=== PATIENT | female | born 1965 | race Caucasian/White ===

== ENCOUNTER 2018-01-01 20:51 | Emergency (ER) | payer OTHER ==
[~2018-01-01] VITALS: Ht 165.1 cm; Wt 81.6 kg
[2018-01-01] MEDS ORDERED: SIMVASTATIN20 MG PO (21:06)
[2018-01-01] MEDS ORDERED: TOUJEO SOL300 UNIT/1 (21:06)
[2018-01-01] MEDS ORDERED: JANUVIA25 MG PO (21:06)
[2018-01-02] MEDS ORDERED: INTESTINEX680 M1 PO (05:48)
[2018-01-02] MEDS ORDERED: PEPCID AC20 MG PO (05:48)
== END 2018-01-02 06:26 | disposition home or self-care (01) ==
LOC: ER 20:51
DX: K29.70 Gastritis, unspecified, without bleeding (principal)

== ENCOUNTER 2018-03-04 22:52 | Emergency (ER) | payer OTHER ==
[~2018-03-04] VITALS: Ht 165.1 cm; Wt 81.6 kg
[~2018-03-04 22:52] MED LIST: INTESTINEX680 M1 PO; JANUVIA25 MG PO; PEPCID AC20 MG PO; SIMVASTATIN20 MG PO; TOUJEO SOL300 UNIT/1
[2018-03-05] MEDS ORDERED: LEVSIN/SL0.125 MG PO (04:21)
[2018-03-05] MEDS ORDERED: PEPCID AC20 MG PO (04:21)
== END 2018-03-05 04:51 | disposition home or self-care (01) ==
LOC: ER 22:52
DX: K29.70 Gastritis, unspecified, without bleeding (principal)

== ENCOUNTER 2018-04-21 08:55 | Inpatient (IN) | payer OTHER ==
[~2018-04-21] VITALS: Ht 167.6 cm; Wt 78.5 kg
[~2018-04-21 08:55] MED LIST changes: +LEVSIN/SL0.125 MG PO
[2018-04-29] MEDS ORDERED: GAS RELIEF125 MG PO (12:03)
[2018-04-29] MEDS ORDERED: ZOFRAN4 MG PO (12:04)
[2018-04-29] MEDS ORDERED: PROTONIX40 MG PO (12:05)
[2018-04-29] MEDS ORDERED: REGLAN5 MG/5 ML PO (12:06)
[2018-04-29] MEDS ORDERED: TOUJEO SOL300 UNIT/1 SUBCUTANEO (12:38)
== END 2018-04-29 13:39 | disposition home or self-care (01) | DRG 357 ==
LOC: ER 08:55 → MEDI 18:33
PROC: BW40ZZZ Ultrasonography of Abdomen (ICD-10-PCS; 2018-04-21)
PROC: BW25Y0Z Computerized Tomography (CT Scan) of Chest, Abdomen and Pelvis using Other Contrast, Unenhanced and Enhanced (ICD-10-PCS; 2018-04-22)
PROC: 0DB78ZX Excision of Stomach, Pylorus, Via Natural or Artificial Opening Endoscopic, Diagnostic (ICD-10-PCS; 2018-04-25)
PROC: BW30Y0Z Magnetic Resonance Imaging (MRI) of Abdomen using Other Contrast, Unenhanced and Enhanced (ICD-10-PCS; 2018-04-25)
PROC: [UNRECOGNIZED PROCEDURE] (2018-04-25)
PROC: 07BB3ZX Excision of Mesenteric Lymphatic, Percutaneous Approach, Diagnostic (ICD-10-PCS; principal; 2018-04-26)
PROC: BB24Y0Z Computerized Tomography (CT Scan) of Bilateral Lungs using Other Contrast, Unenhanced and Enhanced (ICD-10-PCS; 2018-04-27)
PROC: B246ZZZ Ultrasonography of Right and Left Heart (ICD-10-PCS; 2018-04-28)
DX: K29.00 Acute gastritis without bleeding (principal); C7B.01 Secondary carcinoid tumors of distant lymph nodes; E86.0 Dehydration; E11.65 Type 2 diabetes mellitus with hyperglycemia; I27.29 Other secondary pulmonary hypertension; C80.1 Malignant (primary) neoplasm, unspecified
CPT/HCPCS: 74182

== ENCOUNTER 2018-05-09 08:11 | Outpatient (CLI) | payer OTHER ==
[~2018-05-09 08:11] MED LIST changes: +GAS RELIEF125 MG PO; +PROTONIX40 MG PO; +REGLAN5 MG/5 ML PO; +TOUJEO SOL300 UNIT/1 SUBCUTANEO; +ZOFRAN4 MG PO
== END 2018-05-09 08:27 | disposition home or self-care (01) ==
LOC: NUCLEAR 08:11
DX: C7A.098 Malignant carcinoid tumors of other sites (principal)
CPT/HCPCS: 78816; A9552

== ENCOUNTER 2019-01-12 14:01 | Emergency (ER) | payer OTHER ==
[~2019-01-12] VITALS: Ht 165.1 cm; Wt 75.7 kg
[2019-01-12] MEDS ORDERED: IBUPROFEN600 MG PO (17:55)
[2019-01-12] MEDS ORDERED: OSEL75CA PO (17:55)
[2019-01-12] MEDS ORDERED: TESSALON PERLE100 M1 PO (17:55)
[2019-01-12] MEDS ORDERED: INTESTINEX680 M1 PO (17:55)
== END 2019-01-12 18:08 | disposition home or self-care (01) ==
LOC: ER 14:01
DX: J11.1 Influenza due to unidentified influenza virus with other respiratory manifestations (principal)

== ENCOUNTER 2020-07-12 13:52 | Emergency (ER) | payer OTHER ==
[~2020-07-12] VITALS: Ht 165.1 cm; Wt 73.5 kg
[~2020-07-12 13:52] MED LIST changes: +IBUPROFEN600 MG PO; +OSEL75CA PO; +TESSALON PERLE100 M1 PO
== END 2020-07-12 15:21 | disposition home or self-care (01) ==
LOC: ER 13:52
DX: L02.212 Cutaneous abscess of back [any part, except buttock and flank] (principal)

== ENCOUNTER 2021-01-17 11:31 | Emergency (ER) | payer OTHER ==
[~2021-01-17] VITALS: Ht 165.1 cm; Wt 78.0 kg
[2021-01-17] MEDS ORDERED: PERCOCET 5-3251 EACH PO (19:51)
[2021-01-17] MEDS ORDERED: PEPCID AC20 MG PO (19:51)
[2021-01-17] MEDS ORDERED: ZOFRAN8 MG PO (19:51)
[2021-01-17] MEDS ORDERED: REGLAN5 MG/5 ML PO (19:51)
[2021-01-17] MEDS ORDERED: PROTONIX40 MG PO (19:51)
[2021-01-17] MEDS ORDERED: LEVSIN/SL0.125 MG SL (19:51)
== END 2021-01-17 20:20 | disposition home or self-care (01) ==
LOC: ER 11:31
DX: R10.12 Left upper quadrant pain (principal)

== ENCOUNTER 2023-06-21 11:29 | Emergency (ER) | payer OTHER ==
[~2023-06-21] VITALS: Ht 165.1 cm; Wt 68.9 kg
[~2023-06-21 11:29] MED LIST changes: +LEVSIN/SL0.125 MG SL; +PERCOCET 5-3251 EACH PO; +ZOFRAN8 MG PO
[2023-06-21 12:50] LABS: HEMOGLOBIN 12.1 g/dL (12.0-15.00); MEAN CORPUSCULAR HEMOGLOBIN 23.9 pg (27.00-32.0); MEAN CORPUSCULAR HGB CONC 31.8 g/dl (32.0-36.0); PLATELET COUNT 272 K/uL (150-450); RED BLOOD COUNT 5.07 M/uL (4.00-6.00); RED CELL DISTRIBUTION WIDTH 14.8 % (11.5-14.5)
[2023-06-21 13:05] LABS: CALCIUM 10.1 mg/dL (8.5-10.1); GFR 56.75; POTASSIUM 3.96 mEq/L (3.5-5.1)
[2023-06-21 13:37] LABS: PH,URINE 5.5 (5.0-8.0); URINE APPEARANCE Clear; URINE BILIRRUBIN Negative (NEGATIVE); URINE BLOOD Negative; URINE COLOR Yellow; URINE GLUCOSE Negative (NEGATIVE); URINE LEUKOCYTE Negative; URINE NITRATE Negative; URINE PROTEIN Negative (NEGATIVE); URINE UROBILINOGEN 0.2 E.U./dl
[2023-06-21 13:38] LABS: URINE EPITHELIAL CELLS 1.5 uL (0.0-38.8); URINE RBC 10.2 uL (0.0-20.8); URINE WBC 3.8 uL (0.0-23.2)
== END 2023-06-21 16:19 | disposition home or self-care (01) ==
LOC: ER 11:30
PROVIDERS: Emergency Medicine
DX: K59.00 Constipation, unspecified (principal)

== ENCOUNTER 2023-09-02 12:20 | Emergency (ER) | payer OTHER ==
[~2023-09-02] VITALS: Ht 165.1 cm; Wt 70.8 kg
[2023-09-02 13:55] LABS: HEMATOCRIT 37.1 % (36.0-45.00); HEMOGLOBIN 12.2 g/dL (12.0-15.00); MEAN CELL VOLUME 75.9 fL (80.00-100.00); PLATELET COUNT 219 K/uL (150-450); RED BLOOD COUNT 4.89 M/uL (4.00-6.00); RED CELL DISTRIBUTION WIDTH 16.7 % (11.5-14.5)
[2023-09-02 14:04] LABS: URINE APPEARANCE Clear; URINE BACTERIA 16.3 uL (0.0-1933); URINE BILIRRUBIN Negative (NEGATIVE); URINE BLOOD Negative; URINE COLOR Yellow; URINE GLUCOSE Negative (NEGATIVE); URINE LEUKOCYTE Negative; URINE NITRATE Negative; URINE PROTEIN Negative (NEGATIVE); URINE RBC 3.3 uL (0.0-20.8); URINE UROBILINOGEN 0.2 E.U./dl
[2023-09-02 14:13] LABS: URINE EPITHELIAL CELLS 1.2 uL (0.0-38.8); URINE WBC 1.5 uL (0.0-23.2)
[2023-09-02 14:47] LABS: CALCIUM 9.7 mg/dL (8.5-10.1); CREATININE SERUM 0.88 mg/dL (0.55-1.02); GFR 65.77; POTASSIUM 4.19 mEq/L (3.5-5.1)
== END 2023-09-02 17:17 | disposition home or self-care (01) ==
LOC: ER 12:21
PROVIDERS: Emergency Medicine
DX: R10.9 Unspecified abdominal pain (principal); E11.9 Type 2 diabetes mellitus without complications; Z79.4 Long term (current) use of insulin

== ENCOUNTER → 2024-09-07 09:43 | Outpatient (CLI) | payer OTHER ==
[2024-09-07 10:25] LABS: HEMATOCRIT 36.2 % (36.0-45.00); HEMOGLOBIN 11.4 g/dL (12.0-15.00); MEAN CORPUSCULAR HGB CONC 31.6 g/dl (32.0-36.0); PLATELET COUNT 262 K/uL (150-450); RED BLOOD COUNT 4.76 M/uL (4.00-6.00); RED CELL DISTRIBUTION WIDTH 16.3 % (11.5-14.5)
[2024-09-07 10:29] LABS: URINE RBC 3.3 uL (0.0-20.8)
[2024-09-07 10:36] LABS: URINE APPEARANCE Clear; URINE BILIRRUBIN Negative (NEGATIVE); URINE BLOOD Negative; URINE COLOR Yellow; URINE GLUCOSE Negative (NEGATIVE); URINE KETONE Negative (NEGATIVE); URINE LEUKOCYTE Negative; URINE NITRATE Negative; URINE PROTEIN Negative (NEGATIVE); URINE UROBILINOGEN 0.2 E.U./dl
[2024-09-07 11:09] LABS: ALBUMIN 3.8 gm/dL (3.4-5.0); BILIRUBIN TOTAL 0.61 mg/dL (0.3-1.2); CALCIUM 9.5 mg/dL (8.5-10.1); CREATININE SERUM 0.74 mg/dL (0.55-1.02); GFR 80.05; GLOBULINA 3.6 G/DL (2.4-3.5); POTASSIUM 4.13 mEq/L (3.5-5.1); TOTAL PROTEIN 7.4 gm/dL (6.4-8.2)
[2024-09-07 11:12] LABS: URINE BACTERIA 3.6 uL (0.0-1933); URINE EPITHELIAL CELLS 0.6 uL (0.0-38.8); URINE WBC 1.5 uL (0.0-23.2)
== END | disposition home or self-care (01) ==
LOC: LAB 09:43
PROVIDERS: ATTEND Internal Medicine
DX: D56.0 Alpha thalassemia (principal); E11.9 Type 2 diabetes mellitus without complications; K85.90 Acute pancreatitis without necrosis or infection, unspecified; N39.0 Urinary tract infection, site not specified

== ENCOUNTER 2024-09-08 07:19 | Outpatient (CLI) | payer OTHER | END 2024-09-08 07:43 | disposition home or self-care (01) | LOC: TOM 07:19 | PROVIDERS: ATTEND Internal Medicine | DX: R10.9 Unspecified abdominal pain (principal); K85.90 Acute pancreatitis without necrosis or infection, unspecified; K86.1 Other chronic pancreatitis; K57.92 Diverticulitis of intestine, part unspecified, without perforation or abscess without bleeding ==